=== PATIENT | female | born 1990 | race Caucasian/White ===

== ENCOUNTER → 2021-03-12 13:02 | Outpatient (BNVA) | payer OTHER, SELFPAY | PROVIDERS: Visit Provider Obstetrics & Gynecology | DX: Z12.4 Encounter for screening for malignant neoplasm of cervix (principal) | CPT/HCPCS: 88175 ==

== ENCOUNTER → 2022-09-01 18:15 | Outpatient (BNVA) | payer OTHER, SELFPAY | PROVIDERS: PCP Family Medicine Adult Medicine; Visit Provider Registered Nurse Neonatal Intensive Care | DX: N39.0 Urinary tract infection, site not specified (principal) | CPT/HCPCS: 81000 ==

== ENCOUNTER → 2024-01-05 08:05 | Outpatient (BNVA) | payer OTHER, SELFPAY | PROVIDERS: PCP Family Medicine Adult Medicine; Visit Provider Nurse Practitioner Women's Health | DX: N92.6 Irregular menstruation, unspecified (principal) | CPT/HCPCS: 81025 ==

== ENCOUNTER → 2024-01-19 08:48 | Outpatient (BNVA) | payer OTHER, SELFPAY | PROVIDERS: PCP Family Medicine Adult Medicine; Visit Provider Nurse Practitioner Women's Health | DX: Z34.91 Encounter for supervision of normal pregnancy, unspecified, first trimester (principal); Z3A.08 8 weeks gestation of pregnancy | CPT/HCPCS: 76801 ==

== ENCOUNTER → 2024-01-22 17:02 | Outpatient (BNVA) | payer OTHER, SELFPAY | PROVIDERS: PCP Family Medicine Adult Medicine; Visit Provider Emergency Medicine | DX: R39.9 Unspecified symptoms and signs involving the genitourinary system (principal) | CPT/HCPCS: 87400 ==

== ENCOUNTER 2024-01-26 21:19 | Emergency (ER) | payer OTHER, SELFPAY ==
[2024-01-26 21:20] VITALS: BP 130/83; PULSE 89; RESP 16; TEMP 36.8; O2SAT 99
[2024-01-26 21:47] LABS: Basophils % 0.2 %; Eosinophils # 0.1 10^3/uL (0.0-0.8); Eosinophils % 1.1 %; Hematocrit 35.9 % (36-47); Lymphocytes # 2.8 10^3/uL (0.8-4.8); Lymphocytes % 25.2 %; Mean Corpuscular HGB Conc 33.7 g/dL (30-55); Mean Corpuscular Hemoglobin 30.6 pg (27-33); Mean Corpuscular Volume 90.7 fl (85-98); Mean Platelet Volume 9.3 fL (7.4-10.4); Monocytes # 0.6 10^3/uL (0.2-0.9); Monocytes % 5.1 %; Neutrophils # 7.56 10^3/uL (1.8-7.7); Neutrophils % 68.1 %; Nucleated Red Blood Cells % 0 %; Platelet Count 403 10^3/cmm (157-399); Red Blood Count 3.96 10^6/uL (3.85-5.65); Red Cell Distribution Width 11.9 % (12.1-15.1)
--- NOTE | 2024-01-26 21:54 | USR_ITS ---
PROCEDURE INFORMATION: Exam: US First Trimester, Transabdominal and US , Transvaginal Exam date and time: 01/26/2024 10:26 PM Age: 33 years old Clinical indication: Antepartum complications; Bleeding and weight gain - excessive and other: Cramping; complicated by abdominal or pelvic pain; Other: Pelvic cramping; Gestational age or lmp: 9w 5d by lmp; ; Additional info: Vaginal bleeding LABS AND CLINICAL REPORTS: Serum Choriogonadotropin (HCG): 596755 mIU/mL Last menstrual period start date: 11/08/2023 Gestational age (Established): 9 w 5 d Estimated due date (Established): 08/25/2024 TECHNIQUE: Imaging protocol: Real-time transabdominal obstetrical ultrasound of the maternal pelvis and a first trimester , less than 14 weeks 0 days, with image documentation. Transvaginal imaging was used for better evaluation of the fetus, adnexa, and/or cervix. COMPARISON: US OB <= 14 weeks fetus [id number] 01/19/2024 8:51 AM FINDINGS: Gestation: Intrauterine gestation is visualized. pole is visualized and dysmorphic in appearance. No yolk sac is visualized. Embryonic/ heart rate: 0 bpm Extra-embryonic membranes/Placenta: Unremarkable. No subchorionic bleed. Amniotic fluid: Amniotic fluid and extra-amniotic fluid is normal for gestational age. BIOMETRY: Gestational age (AUA): 8 w 1 d Estimated due date (AUA): 09/05/2024 [place] length (CRL): 16.8 mm. EGA (CRL) is 8 w 1 d MATERNAL: Uterus: Uterus measures 12.9 x 7.6 x 6.1 cm. 3.9 cm anterior myometrial fibroid noted. Cervix: Unremarkable. Right ovary/adnexa: Right ovary measures 3.6 x 2.7 x 1.9 cm for a volume of 9.6 mL. Left ovary/adnexa: Left ovary measures 3.3 x 4.4 x 2.6 cm. Left ovarian volume is 10.1 mL. Intraperitoneal space: No intraperitoneal free fluid. US/US OB <= 14 weeks fetus [id number] IMPRESSION: Intrauterine gestational sac is confirmed containing a dysmorphic appearing embryo which has not grown when compared to the prior. There is no embryonic cardiac activity. Findings are compatible with intrauterine embryonic demise.
--- NOTE | 2024-01-26 21:55 | ED_ITS ---
HPI - 2 General: Chief complaint: Vaginal Bleeding Stated complaint: 9 Wks preg spotting light cramping Time Seen by Provider: 01/26/24 21:48 Source: patient Mode of arrival: ambulatory Limitations: no limitations History of Present Illness: 33-year-old female is currently roughly 8 to 9 weeks she states that today when wiping she noticed a slight amount of spotting. She denies passing any clots she had some slight abdominal cramping denies any severe pain. She has had no vomiting or diarrhea. She did have a formal ultrasound on the by her OB office. Associated symptoms: Reports abdominal pain; Deny headache(s), nausea or vomiting Review of Systems 2 Const: Denies: fever(s), chills, body aches or change in appetite Eyes: Denies: blurry vision or eye discomfort ENMT: Denies: throat pain or dental pain Card: Denies: chest pain Resp: Denies: dyspnea GI: Reports: abdominal pain; Denies: nausea, vomiting or diarrhea : Reports: vaginal bleeding Musc: Denies: neck pain or back pain Skin/Breast: Denies: rash Neuro: Denies: headache(s) PFSH ED 2 PFSH: Medical History No pertinent past medical history neghx:htn,dm,thyroid,dvt/pe PCP: Dr. Sykes Asthma Allergic rhinitis due to allergen Anxiety and depression Sprain and strain of sacrum Surgical History H/O oral surgery wisdom teeth extraction Family History Grandfather Stroke paternal Diabetes paternal Heart disease paternal Grandmother Stroke great grandmother, maternal Father Hyperlipidemia Hypertension Mother Hyperlipidemia Denies family history of Colon cancer Ovarian cancer Clotting disorder Breast cancer Anesthesia complication Bleeding disorder Uterine cancer Thyroid disease Female Reproductive History: Spontaneous abortions: No Physical Exam 2 Const: COMMON NORMALS: no acute distress, patient oriented x3 and healthy appearing HENMT: COMMON NORMALS: normocephalic and atraumatic HEAD & SCALP: n ormocephalic and atraumatic Neck/C-Spine: COMMON NORMALS: full ROM and supple Chest: COMMONS NORMALS: normal inspection of the chest Resp: COMMON NORMALS: normal respiratory effort GI: COMMON NORMALS: Normal to inspection, nondistended, normoactive bowel sounds present, Soft to palpation, non-tender and no masses PALPATION: Yes Soft to palpation Extremity: COMMON NORMALS: normal to inspection and full ROM Neuro: COMMON NORMALS: patient oriented x3, moves all extremities and no focal motor deficits Psych: COMMON NORMALS: mental status grossly normal, Normal thought process present and cooperative THOUGHT PROCESS: Normal thought process present Skin: COMMON NORMALS: no rashes or lesions noted and no wounds GENERAL SKIN EXAM: no rashes or lesions noted Course 2 Vital Signs: Vital signs: Vital Signs Temperature 98.2 F 01/26/24 23:24 Pulse Rate 95 01/26/24 23:24 Respiratory Rate 16 01/26/24 23:24 Blood Pressure 166/83 01/26/24 23:24 Pulse Oximetry 99 01/26/24 23:24 Oxygen Delivery Me thod Room Air 01/26/24 21:20 MDM - OB/Uterine Contractions Medical Decision Making Patient presents here with vaginal bleeding ultrasound did show a likely demise I did inform her that she is to follow-up with her OB in 2 to 4 days she has no severe bleeding here blood works normal she stable for discharge at this time return if worsening Medical Records I reviewed the patient's medical records. Lab Data I reviewed the patient's lab results. 01/26/24 21:37 Radiology Impressions Ultrasound 01/26/24 21:54 IMPRESSION: Intrauterine gestational sac is confirmed containing a dysmorphic appearing embryo which has not grown when compared to the prior. There is no embryonic cardiac activity. Findings are compatible with intrauterine embryonic demise. Laboratory Results WBC 11.10 10^3/uL (3.29-11.43) 01/26/24 21:37 RBC 3.96 10^6/uL (3.85-5.65) 01/26/24 21:37 Hgb 12.10 g/dL (11.27-16.99) 01/26/24 21:37 Hct 35.9 % (36-47) L 01/26/24 21:37 MCV 90.7 fl (85-98) 01/26/24 21:37 MCH 30.6 pg (27-33) 01/26/24 21:37 MCHC 33.7 g/dL (30-55) 01/26/24 21:37 RDW 11.9 % (12.1-15.1) L 01/26/24 21:37 Plt Count 403 10^3/cmm (157-399) H 01/26/24 21:37 MPV 9.3 fL (7.4-10.4) 01/26/24 21:37 Neut % (Auto) 68.1 % 01/26/24 21:37 Lymph % (Auto) 25.2 % 01/26/24 21:37 [place] % (Auto) 5.1 % 01/26/24 21:37 Eos % (Auto) 1.1 % 01/26/24 21:37 Baso % (Auto) 0.2 % 01/26/24 21:37 Neut # (Auto) 7.56 10^3/uL (1.8-7.7) 01/26/24 21:37 Lymph # (Auto) 2.8 10^3/uL (0.8-4.8) 01/26/24 21:37 [place] # (Auto) 0.6 10^3/uL (0.2-0.9) 01/26/24 21:37 Eos # (Auto) 0.1 10^3/uL (0.0-0.8) 01/26/24 21:37 Baso # (Auto) 0.0 10^3/uL (0.0-0.1) 01/26/24 21:37 Nucleated RBC % (auto) 0 % 01/26/24 21:37 Nucleated RBCs # 0.0 /100WBC 01/26/24 21:37 Ser , Semi-Qnt 589996.00 mIU/mL 01/26/24 21:37 Blood Type A Positive 01/26/24 21:37 Rho(D) Type Rh positive 01/26/24 21:37 Antibody Screen Negative 01/26/24 21:37 All radiology interpretation(s) finalized by discharge Discharge Plan Discharge Patient Disposition: Home Clinical Impression: Threatened miscarriage Condition: Stable Prescriptions: No Action DHA 200 mg capsule 200 mg PO DAILY misoprostol 200 mcg tablet 800 mcg PO Q12H PRN (Reason: miscarriage) Qty: 8 0RF Rx Instructions: take once and repeat in 12 hours if no results ibuprofen 800 mg tablet 800 mg PO Q8H PRN (Reason: pain) Qty: 60 0RF promethazine 25 mg tablet 25 mg PO Q6H PRN (Reason: nausea and vomiting) Qty: 14 0RF Discharge Orders: Discharge ED (Routine); Ordered 01/26/24 Ordered By: Ignacio Cast Referrals: Jesus gNuyen MD [Physician] - 1-3 days Rudi Sykes MD [Primary Care Provider] - Discharge Diet: Advance as tolerated Discharge Activity: Resume usual activity Patient Instructions: Threatened Miscarriage (ED) Coding Level of Care Code ED [employer] for Charlotte Arango
[2024-01-26 22:55] VITALS: BP 166/83; PULSE 95; O2SAT 99
[2024-01-26 23:24] VITALS: BP 166/83; PULSE 95; RESP 16; TEMP 36.8; O2SAT 99
== END 2024-01-26 23:25 | disposition home or self-care (01) ==
PROVIDERS: Emergency Provider Emergency Medicine; PCP Family Medicine Adult Medicine
DX: O20.0 Threatened abortion (principal); Z3A.09 9 weeks gestation of pregnancy
CPT/HCPCS: 36415; 76801; 84702; 85025; 86850; 86900; 99284

== ENCOUNTER 2024-01-29 09:58 | Outpatient (CLI) | payer OTHER, SELFPAY | END 2024-01-29 09:59 | disposition home or self-care (01) | LOC: LAB 09:58 | PROVIDERS: PCP Family Medicine Adult Medicine; Visit Provider Nurse Practitioner Women's Health | DX: O03.4 Incomplete spontaneous abortion without complication (principal) | CPT/HCPCS: 36415; 84702 ==

== ENCOUNTER 2024-02-01 14:13 | Outpatient (CLI) | payer OTHER, SELFPAY | END 2024-02-01 14:14 | disposition home or self-care (01) | LOC: LAB 14:21 | PROVIDERS: PCP Family Medicine Adult Medicine; Visit Provider Nurse Practitioner Women's Health | DX: O03.4 Incomplete spontaneous abortion without complication (principal) | CPT/HCPCS: 84702 ==

== ENCOUNTER → 2024-02-05 10:08 | Outpatient (BNVA) | payer OTHER, SELFPAY | PROVIDERS: PCP Family Medicine Adult Medicine; Visit Provider Obstetrics & Gynecology | DX: O03.4 Incomplete spontaneous abortion without complication (principal) | CPT/HCPCS: 84702 ==

== ENCOUNTER → 2024-02-17 13:38 | Outpatient (BNVA) | payer OTHER, SELFPAY | PROVIDERS: PCP Family Medicine Adult Medicine; Visit Provider Obstetrics & Gynecology | DX: Z34.90 Encounter for supervision of normal pregnancy, unspecified, unspecified trimester (principal); Z3A.00 Weeks of gestation of pregnancy not specified | CPT/HCPCS: 76817; 84702; 85025 ==

== ENCOUNTER → 2024-02-21 12:45 | Outpatient (BNVA) | payer OTHER, SELFPAY | PROVIDERS: PCP Family Medicine Adult Medicine; Visit Provider Emergency Medicine | DX: J06.9 Acute upper respiratory infection, unspecified (principal) | CPT/HCPCS: 87400 ==

== ENCOUNTER → 2024-02-22 15:10 | Outpatient (BNVA) | payer OTHER, SELFPAY | PROVIDERS: PCP Family Medicine Adult Medicine; Visit Provider Obstetrics & Gynecology | DX: O03.4 Incomplete spontaneous abortion without complication (principal); Z3A.00 Weeks of gestation of pregnancy not specified | CPT/HCPCS: 84702 ==

== ENCOUNTER → 2024-02-23 11:42 | Outpatient (BNVA) | payer OTHER, SELFPAY | PROVIDERS: PCP Family Medicine Adult Medicine; Visit Provider Obstetrics & Gynecology | DX: O03.4 Incomplete spontaneous abortion without complication (principal); Z3A.00 Weeks of gestation of pregnancy not specified | CPT/HCPCS: 76830 ==

== ENCOUNTER 2024-02-24 08:03 | Day surgery (SDC) | payer OTHER, SELFPAY ==
[2024-02-24] VITALS (12 sets, daily range): BP systolic 95–117; BP diastolic 53–86; PULSE 81–121; RESP 16–22; TEMP 36.5–37.2; O2SAT 94–97; BMI 30.4
--- NOTE | 2024-02-24 08:33 | W.PM.OPSUD ---
Surgery/Procedure H&P Update DATE OF PROCEDURE: February 24, 2024 DATE H&P PERFORMED: 02/22/24 H&P UPDATE INFORMATION: I have reviewed H&P completed within last 30 days, I have examined patient prior to procedure and No changes to prior documentation PREOP DIAGNOSIS: incomplete AB PLANNED PROCEDURE: Operation Date: 02/24/24 10:05 Proposed Procedures p Dilation And Curettage w/ Suction(Not Applicable) - Jesus Nguyen MD
[2024-02-24] MEDS: scopolamine 1.5 Patch 1 PATCH TRANSDERMA (09:00)
[2024-02-24] MEDS: ceFAZolin 2,000 MG in sodium chloride 0.9% (plus) 50 ML 100 MG IV (09:01)
[2024-02-24] MEDS: sodium chloride 0.9% 500 ML IV (09:01)
[2024-02-24] MEDS: sodium chloride 0.9% 1,000 ML 30 ML IV (09:05)
--- NOTE | 2024-02-24 09:14 | ANES.PREANE2 ---
Pre-Anesthetic Assessment Height/Weight: Height 1.73 m Weight 90.718 kg Temp Pulse Resp BP Pulse Ox O2 Del Method 98.3 F 121 H 18 114/86 97 Room Air 02/24/24 08:29 02/24/24 08:29 02/24/24 08:29 02/24/24 08:29 02/24/24 08:29 02/24/24 08:30 Preop Diagnosis: incomplete AB Operation Date: 02/24/24 10:05 Proposed Procedures p Dilation And Curettage w/ Suction(Not Applicable) - Jesus Nguyen MD Familial anesthetic complications: epidural caused headache with each bolus, wasn't a pdph per patient Was Beta Angela taken within 24 hours: N/A Was Clonidine taken within 24 hours: N/A Last intake: Intake Last Liquid Date 02/23/24 Last Liquid Time 23:00 Last Solid Date 02/23/24 Last Solid Time 22:30 Social No alcohol and No tobacco Exam alert, oriented x 3, clear to auscultation bilaterally and regular rate & rhythm Airway Mallampati: Class II Dentition: full Pulmonary Asthma Metabolic patient feeling sick - tested negative for flu. No fever. Informed patient of increased risk of bronchospasm, laryngospasm, and hypoxemic episodes during anesthesia with URI. Offered her opportunity to reschedule. States she's not feeling that bad and wants to proceed today Anesthetic Plan ASA status: 2 Anesthesia: General Risk of > 500 ml blood loss (7ml/kg in children): No Medications/Allergies Home Medications Medication Instructions Recorded Confirmed Last Taken Type acetaminophen 325 mg tablet 325 mg PO QID PRN Pain 02/18/24 02/23/24 Unknown History (Tylenol) cetirizine 10 mg tablet (Zyrtec) 10 mg PO DAILY #30 tabs 02/21/24 02/23/24 02/21/24 Rx fluticasone propionate 50 2 spray intranasal DAILY #16 grams 02/21/24 02/23/24 Unknown Rx mcg/actuation nasal spray,suspension (Flonase Allergy Relief) albuterol sulfate 2.5 mg/0.5 mL 2.5 mg inhalation PRN PRN Wheezing 02/23/24 02/23/24 02/23/24 History solution for nebulization Allergies Allergy/AdvReac Type Severity Reaction Status Date / Time lavender (Lavandula Allergy rash Verified 02/23/24 16:01 angustifolia) Sulfa (Sulfonamide Allergy ALGY-Hives Verified 02/23/24 16:01 Antibiotics) Current Medications Generic Name Dose Route Start Last Admin Trade Name Randi PRN Reason Stop Dose Admin Sodium Chloride 1,000 mls @ 30 mls/hr 02/24/24 08:15 02/24/24 09:05 Sodium Chloride 0.9% IV 02/25/24 08:14 30 mls/hr .Q24H SARAI Administration Sodium Chloride 500 mls @ 500 mls/hr 02/24/24 08:30 02/24/24 09:01 Sodium Chloride 0.9% IV 02/24/24 09:29 500 mls/hr ONCE ONE Administration PFSH Anesthesia Medical History No pertinent past medical history neghx:htn,dm,thyroid,dvt/pe PCP: Dr. Sykes Asthma Allergic rhinitis due to allergen Anxiety and depression Sprain and strain of sacrum Surgical History H/O oral surgery wisdom teeth extraction Family History Grandfather Stroke paternal Diabetes paternal Heart disease paternal Grandmother Stroke great grandmother, maternal Father Hyperlipidemia Hypertension Mother Hyperlipidemia Denies family history of Colon cancer Ovarian cancer Clotting disorder Breast cancer Anesthesia complication Bleeding disorder Uterine cancer Thyroid disease Female Reproductive History Spontaneous abortions: No Data Anesthesia Cardiac Studies: No Data to Display
[2024-02-24 09:24] LABS: Basophils % 0.2 %; Eosinophils % 0.2 %; Hematocrit 35.3 % (36-47); Lymphocytes # 1.1 10^3/uL (0.8-4.8); Lymphocytes % 22.2 %; Mean Corpuscular HGB Conc 33.4 g/dL (30-55); Mean Corpuscular Hemoglobin 30.7 pg (27-33); Mean Corpuscular Volume 91.9 fl (85-98); Mean Platelet Volume 9.6 fL (7.4-10.4); Monocytes # 0.5 10^3/uL (0.2-0.9); Monocytes % 10.5 %; Neutrophils # 3.29 10^3/uL (1.8-7.7); Neutrophils % 66.5 %; Nucleated Red Blood Cells % 0 %; Platelet Count 343 10^3/cmm (157-399); Red Blood Count 3.84 10^6/uL (3.85-5.65); Red Cell Distribution Width 12.5 % (12.1-15.1); White Blood Count 4.95 10^3/uL (3.29-11.43)
[2024-02-24 09:26] LABS: Add Urine Microscopic? YES; Bilirubin Urine 1+ (Negative); Blood Urine 3+ (Negative); Glucose Urine UA Norm (Normal); Ketones Urine Negative (Negative); Leukocyte Esterase Urine 1+ (Negative); Nitrate Urine Negative (Negative); Protein Urine 1+ (Negative); Specific Gravity, Urine 1.025 (1.005-1.030); Urine Appearance Cloudy (CLEAR); Urine Color Yellow (Yellow); Urobilinogen Urine Norm (Negative); pH Urine 5 (5-7)
[2024-02-24 09:33] LABS: Bacteria Urine 1+ /hpf; Mucus Urine 2+ /hpf; RBC Urine 50-80 /hpf (0-2)
[2024-02-24 09:34] LABS: Add Urine Culture? Yes; Hyaline Casts Urine 0-4 /lpf
[2024-02-24 09:40] LABS: Alanine Aminotransferase 35 U/L (0-33); Albumin Level 4.2 g/dL (3.5-5.2); Alkaline Phosphatase 71 U/L (35-105); Anion Gap 16.3 (5-19); Aspartate Amino Transferase 36 U/L (0-32); Blood Urea Nitrogen 11 mg/dL (6-20); Calcium 8.9 mg/dL (8.5-10.5); Carbon Dioxide 22 mmol/L (22-29); Chloride 105 mmol/L (98-107); Creatinine Clr Calc Pharmacy 118.9371; Globulin 3.2 g/dL (1.3-4.6); Glomerular Filtration Rate 83.1 mL/min (90-130); Glucose 100 mg/dL (65-115); Osmolality Calculated 287 mOsm/kg (285-295); Potassium 4.3 mmol/L (3.5-5.1); Sodium 139 mmol/L (136-145); Total Bilirubin 0.2 mg/dL (0.15-1.2); Total Protein 7.4 g/dL (6.6-8.7)
[2024-02-24] MEDS: lidocaine-epi 2% PF 1:200,000 20 mL SDV 10 ML XX (11:04)
--- NOTE | 2024-02-24 11:04 | PM.OP ---
Operative Report Date of procedure: February 24, 2024 Pre-op diagnosis: Incomplete AB Post-op diagnosis: same Procedure done: Suction dilation and curettage Implants: None Specimens removed/disposition: Consent Surgeon: Jesus Nguyen MD Estimated blood loss (mL): 10 IV fluids (mL): 800 Complications: None Procedure: After informed consent, the patient was taken to the Operating Room where general anesthesia was administered. The patient was examined under anesthesia and found to have a normal uterus with normal adnexa. She was placed in the dorsal lithotomy position and prepped and draped in sterile fashion. A sterile weighted speculum was placed in the patient?s vagina. A single-tooth tenaculum was then applied to the cervix. The uterus was then gently sounded to [] cm and a suction curette was advanced gently to the uterine fundus and product of conception emptied. A sharp curettage was then performed until a gritty texture was noted. There was minimal bleeding noted and the tenaculum was removed with good hemostasis noted. The patient tolerated the procedure well. The patient was taken to the recovery area in stable condition.
--- NOTE | 2024-02-24 12:30 | ANE.PACU2 ---
Inpatient post-anesthesia follow up: Airway intact: Yes Vital signs: Temperature 99.0 F Pulse Rate 91 Respiratory Rate 18 Blood Pressure 111/73 Pulse Oximetry 95 Oxygen Delivery Me thod Room Air Oxygen Flow Rate Fraction of Inspir ed Oxygen Hydration adequate: Yes Nausea and vomiting: No Pain level: 1 Mental status: Baseline
== END 2024-02-24 12:32 | disposition home or self-care (01) ==
PROVIDERS: PCP Family Medicine Adult Medicine; Visit Provider Obstetrics & Gynecology
PROC: (CPT 59820; principal; 2024-02-24 09:55)
DX: O03.4 Incomplete spontaneous abortion without complication (principal)
CPT/HCPCS: 59820; 36415; 80053; 81001; 85025; 86850; 86900; 87086; 88305; J0330; J0690; J1100; J2405; J2710; J3010; J3490; J7030; J7040

== ENCOUNTER → 2024-09-28 18:09 | Outpatient (BNVA) | payer OTHER, SELFPAY | PROVIDERS: PCP Family Medicine Adult Medicine; Visit Provider Registered Nurse Neonatal Intensive Care | DX: M25.561 Pain in right knee (principal) | CPT/HCPCS: 73562 ==

== ENCOUNTER → 2024-10-05 18:16 | Outpatient (BNVA) | payer OTHER, SELFPAY | PROVIDERS: PCP Family Medicine Adult Medicine; Visit Provider Emergency Medicine | DX: J02.9 Acute pharyngitis, unspecified (principal) | CPT/HCPCS: 87880 ==

== ENCOUNTER → 2025-01-12 13:53 | Outpatient (BNVA) | payer SELFPAY | PROVIDERS: PCP Family Medicine Adult Medicine; Visit Provider Obstetrics & Gynecology | DX: Z30.42 Encounter for surveillance of injectable contraceptive (principal) | CPT/HCPCS: 81025 ==

== ENCOUNTER → 2025-06-11 12:13 | Outpatient (BNVA) | payer OTHER, SELFPAY | PROVIDERS: PCP Family Medicine Adult Medicine; Visit Provider Emergency Medicine | DX: M25.571 Pain in right ankle and joints of right foot (principal) | CPT/HCPCS: 73610 ==

== ENCOUNTER 2025-08-08 09:33 | Outpatient (CLI) | payer OTHER, SELFPAY ==
--- NOTE | 2025-08-08 09:44 | XR_ITS ---
WS: [id number] Sacroiliac joints, 3 views, 08/08/2025 Clinical Data: LUMBAGO WITH SCIATICA, RIGHT SIDE Comparison: None. Findings: The SI joints are normal in width. No erosion, sclerosis or destruction is seen. There are no fractures or dislocations. The adjacent visualized pelvis and hips are unremarkable. XR/XR sacroiliac jts m 3V [id number] Impression: Negative SI joints.
--- NOTE | 2025-08-08 09:45 | XR_ITS ---
WS: [id number] Lumbar spine, AP and lateral views, 08/08/2025 Clinical Data: LUMBAGO WITH SCIATICA, RIGHT SIDE Comparison: None. Findings: No compression fractures or subluxation is seen. There is disc narrowing at L5- S1. The transverse processes and SI joints are normal. XR/XR lumbar spine 2-3V* [id number] Impression: Disc narrowing at L5-S1.
== END 2025-08-08 09:34 | disposition home or self-care (01) ==
PROVIDERS: PCP Family Medicine; Visit Provider Nurse Practitioner Family
DX: M54.41 Lumbago with sciatica, right side (principal)
CPT/HCPCS: 72100; 72202

== ENCOUNTER 2025-10-19 09:16 | Outpatient (CLI) | payer OTHER, SELFPAY ==
--- NOTE | 2025-10-19 09:24 | US_ITS ---
WS: [id number] RIGHT UPPER QUADRANT ULTRASOUND HISTORY: ELEVATED LIVER ENZYMES COMPARISON: None available. Liver: 18.0 cm in length. Liver is top normal size. Diffuse moderate coarse echotexture throughout the liver. No mass identified. The entire liver is not well visualized. No intrahepatic duct dilatation. Portal Vein: Normal hepatopetal flow with monophasic waveform. Gallbladder: Normally distended gallbladder with no stones or wall thickening. CBD: 0.4 cm Pancreas: Limited visualization. No abnormality seen. Right kidney: 9.9 cm in length. Normal size and echogenicity. No hydronephrosis or mass. Aorta and IVC: Unremarkable abdominal aorta and IVC. No ascites. US/US abdomen limited [id number] IMPRESSION: 1. No cholelithiasis identified. 2. Mildly enlarged liver with moderate hepatic steatosis. The entire liver is not well visualized due to steatosis. 3. Limited RIGHT upper quadrant ultrasound due to body habitus.
== END 2025-10-19 09:17 | disposition home or self-care (01) ==
LOC: RAD 09:16
PROVIDERS: PCP Family Medicine; Visit Provider Family Medicine
DX: R74.8 Abnormal levels of other serum enzymes (principal); K76.0 Fatty (change of) liver, not elsewhere classified; R93.89 Abnormal findings on diagnostic imaging of other specified body structures
CPT/HCPCS: 76705